=== PATIENT | female | born 1980 | race Caucasian/White ===

== ENCOUNTER 2016-03-31 05:00 | Inpatient (IN) | payer OTHER ==
[2016-03-31] VITALS (11 sets, daily range): BP systolic 104–124; BP diastolic 56–76; PULSE 70–81; RESP 16–18; Ht 162.6 cm; Wt 104.3 kg
[~2016-03-31] VITALS: Ht 162.6 cm; Wt 104.3 kg
[~2016-03-31 05:00] MED LIST: FERR27TA PO; PREN1TAB49 PO
[2016-03-31] MEDS ORDERED: LACTATED RINGER'S 1,000 ML IV SCH (05:49)
--- NOTE | 2016-03-31 05:58 | TRIAGE ---
OB Triage Datetime Report Generated by CPN: 03/31/2016 05:57 Datetime: 03/31/2016 05:41 Assessment Type: Admission Assessment Maternal Assessment Level of Consciousness: Fully Conscious DTR's/Clonus: DTRs 2+; No Clonus Blurred Vision: No Respiratory Effort: Unlabored Nausea/Vomiting: Denies RUQ Epigastric Pain: Denies Lower Extremities Edema: Bilateral Lower Extremities Degree: 2+ Upper Extremities Edema: None Degree: None Facial Edema: None Fall Risk Assessment History of Falling: (0) No Secondary Diagnosis: (0) No Ambulatory Aid: (0) Bedrest/Nurse Assist IV Therapy: (0) No Gait: (0) Normal/Bedrest/Immobile Mental Status: (0) Oriented to Own Ability Fall Score: 0 Fall Risk Score Definition: No Risk: No action required Pain Assessment Pain Scale: 10 Pain Presence: Intermittent Pain Type: Contraction Pain Location: Abdomen Pain Goal: 0 Datetime: 03/31/2016 05:36 Time of Arrival: 03/31/2016 05:36 EGA: 38.1 Arrived By: Ambulatory Arrived From: Emergency Dept Movement: Present Rupture of Membranes: Denies Vaginal Bleeding: None Vaginal Discharge: Denies Recent Sexual Intercouse: Denies Datetime: 03/31/2016 05:31 EGA: 38.1 Vaginal Exam Dilatation (cms): 9.0 Datetime: 03/31/2016 05:24 Vaginal Exam Dilatation (cms): 9.0 Effacement (%): 90 Station: -2 Exam By: Deyvi Nieto RN Membrane Status: Bulging Vaginal Bleeding: None Cervix, Consistency: Soft Cervix, Position: Anterior Presentation 'A': Cephalic Datetime: 03/31/2016 05:20 Time of Arrival: 03/31/2016 05:05 Arrived By: Wheelchair Arrived From: Home Chief Complaint: UC's Movement: Present Contractions: Regular Time Contractions Began: 03/31/2016 02:00 Contractions: Every 3 minutes Rupture of Membranes: Denies Vaginal Bleeding: None Vaginal Discharge: Denies Recent Sexual Intercouse: Denies Abdominal Trauma: Not Applicable Patient Complaints: Contractions Time Provider Notified: 03/31/2016 05:25 Provider Notified: Dr. Sorenson Initial Plan: [facility] VE
[2016-03-31] MEDS ORDERED: LACTATED RINGER'S 1,000 ML IV PRN (06:00)
[2016-03-31] MEDS ORDERED: CARBOPROST 250 MCG INJ IM PRN (06:00)
[2016-03-31] MEDS ORDERED: BUTORPHANOL 2 MG INJ IV PRN (06:00)
[2016-03-31] MEDS ORDERED: OXYTOCIN 30 UNITS/LR 500 ML IV PRN (06:00)
[2016-03-31] MEDS ORDERED: OXYTOCIN 30 UNITS/LR 500 ML IV SCH (06:00)
[2016-03-31] MEDS ORDERED: MISOPROSTOL 200 MCG TAB PR PRN (06:00)
[2016-03-31] MEDS ORDERED: IBUPROFEN 600 MG TAB PO PRN (06:00)
[2016-03-31] MEDS ORDERED: LIDOCAINE 1% (MPF) 30 ML INJ INJ PRN (06:00)
[2016-03-31] MEDS ORDERED: METHYLERGONOVINE 0.2 MG INJ IM PRN (06:00)
[2016-03-31 06:29] LABS: BASOPHILS % 0.2 % (0.0-2.0); EOSINOPHILS # 0.1 10^3/ul (0.0-0.5); EOSINOPHILS % 0.4 % (0.0-7.0); HEMATOCRIT 36.3 % (37.0-47.0); HEMOGLOBIN 11.8 g/dl (12.0-16.0); LYMPHOCYTES % 14.9 % (15.0-51.0); MEAN CORPUSCULAR HEMOGLOBIN 25.7 pg (29.0-33.0); MEAN CORPUSCULAR HGB CONC 32.5 g/dl (32.0-37.0); MEAN CORPUSCULAR VOLUME 79.2 fl (82.0-101.0); MEAN PLATELET VOLUME 11.7 fl (7.4-10.4); MONOCYTE # 0.6 10^3/ul (0.3-0.9); MONOCYTES % 4.2 % (0.0-11.0); NEUTROPHIL # 10.8 10^3/ul (1.6-7.5); NEUTROPHILS % 80.3 % (39.0-77.0); PLATELET COUNT 206 10^3/UL (140-440); RED BLOOD COUNT 4.58 10^6/ul (4.20-5.40); RED CELL DISTRIBUTION WIDTH 19.1 % (11.5-14.5); UNCORRECTED WBC 13.4 10^3/ul (4.8-10.8); WHITE BLOOD COUNT 13.4 10^3/ul (4.8-10.8)
[2016-03-31 06:45] LABS: CONDITION 1; LH ANALYZER COMMENTS 1; SUSPECT 1
[2016-03-31 06:47] LABS: INR 0.94; PROTIME 12.6 Sec (12.2-14.2)
[2016-03-31 06:48] LABS: PARTIAL THROMBOPLASTIN TIME 25.8 Sec (25.0-35.0)
[2016-03-31] MEDS: OXYTOCIN 30 UNITS/LR 500 ML IV SCH ×4 (08:54→14:31)
--- NOTE | 2016-03-31 09:02 | HP ---
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 Rubella: immune RPR/VDRL: Negative GBS Status: Negative HBsAG: Negative OB Admission Exam Vital Signs Vital Signs Vital Signs Date Time Temp Pulse Resp B/P Pulse Ox O2 Delivery O2 Flow Rate FiO2 03/31/16 05:44 98.2 81 18 121/76 Room Air Physical Exam HEENT: WNL Heart: Rhythm Normal Lungs: Clear, Equal Abdomen: WNL Extremities: Normal Reflexes: Normal Cervical Dilatation: 9cm Effacement: 100% Station: -1 Membranes: Intact Amniotic Fluid: Clear Heart Rate: 130's Accelerations: Accelerations Present Decelerations: No Decelerations Varibility: Moderate Contractions on Admission: < 5 Minutes Apart Intensity: Moderate Last 72 hours Lab Results CBC & BMP 03/31/16 05:40 PERNELL CARTER MD Mar 31, 2016 08:47
--- NOTE | 2016-03-31 09:28 | LDN ---
Date/Time of Note Date/Time of Note DATE: 03/31/16 TIME: 09:08 Delivery Summary OF A BABY BOY FROM [place] POSITION ,SHOULDERS DELIVERED WITH OUT DIFFICULTY REST OF THE BODY FOLLOWED ,NASO KAYLEEN PHALANGEAL SUCTION PERFORMED CORD CLAMPED AFTER STOPPED PULSATION, BABY HANDED TO TEAM. PLACENTA ,SPONTANEOUS EXPULSION INSPECTED COMPLETE, POST DELIVERY VAGINAL INSPECTION INTACT PERINEUM ,BLOOD LOSS 200ML Placenta Delivered: Spontaneously Meconium: none Perineum intact?: Yes Anesthesia type: None Sponge & Needle done & correct: Yes All needle counts correct: Yes Any foreign bodies felt in the: No Problems: Infant Delivery Information Apgars 1 Minute: 9 5 Minute: 9 Suctioning Nose & mouth suctioned at dani: Yes Delee suction performed: No Umbilical Cord Umbilical cord with: 3 Vessels Cord presentations: no nuchal cord Cord Blood was obtained: Yes Mother & Baby Disposition Disposition Mom & Baby to Maternity; Good: Yes Mom transferred to: Other (MATERNITY) Baby to NICU: No PERNELL CARTER MD Mar 31, 2016 09:19
--- NOTE | 2016-03-31 10:30 | DELSUM ---
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 Babies in Womb: 1 Attempted: No Labor Anesthesia: IV Sedation LABOR INFORMATION Reason for Induction: Not Applicable Onset of Labor: 03/31/2016 02:00 Complete Dilatation: 03/31/2016 08:31 Oxytocin: N/A Group B Beta Strep: Negative Antibiotics # of Doses: 0 Antibiotics Time of Last Dose: N/A Steroids Given: None Reason Steroids Not Administered: Indication MEMBRANES Membranes Rupture Method: Artificial Rupture of Membranes: 03/31/2016 08:23 Length of Rupture (hr): 0.50 Amniotic Fluid Color: Clear Amniotic Fluid Amount: Large Amniotic Fluid Odor: None STAGES OF LABOR Stage 1 hr: 6 Stage 1 min: 31 Stage 2 hr: 0 Stage 2 min: 22 Stage 3 hr: 0 Stage 3 min: 4 Total Time in Labor hr: 6 Total Time in Labor min: 57 VAGINAL DELIVERY Episiotomy: None BABY A INFORMATION Delivery Date/Time: 03/31/2016 08:53 Method of Delivery: Vaginal Method of Delivery: Vaginal Born in Route : No : N/A Forceps: N/A Vacuum Extraction: N/A Shoulder Dystocia : No SHOULDER DYSTOCIA BABY A Delivery Date/Time: 03/31/2016 08:53 PRESENTATION/POSITION BABY A Presentation: Cephalic Cephalic Presentation: Vertex Vertex Position: Left Occipital Anterior Breech Presentation: N/A PLACENTA INFORMATION BABY A Placenta Delivery Time : 03/31/2016 08:57 Placenta Method of Delivery: Spontaneous Placenta Method of Delivery: Spontaneous Placenta Status: Delivered SCORES BABY A Heart Rate 1 min: >100 bpm Resp Effort 1 min: Good Cry Reflex Irritability 1 min: Cough/Sneeze/Pulls Away Muscle Tone 1 min: Active Motion Color 1 min: Body [place], Extremit Blue Resuscitation Effort 1 min: Tactile Stimulation SCORE 1 MIN: 9 Heart Rate 5 min: >100 bpm Resp Effort 5 min: Good Cry Reflex Irritability 5 min: Cough/Sneeze/Pulls Away Muscle Tone 5 min: Active Motion Color 5 min: Body [place], Extremit Blue SCORE 5 MIN: 9 INFANT INFORMATION BABY A Gestational Age at Delivery: 38.1 Gestational Status: Early Term- 37- 38.6 Weeks Infant Outcome : Liveborn Infant Condition : Stable Infant Sex: Male Infant Sex: Male IDENTIFICATION/MEDS BABY A ID Band Number: [id number] ID Band Location: Right Leg; Left Arm Sensor Applied: Yes Sensor Number: [id number] Sensor Location : Cord Clamp WEIGHT/LENGTH BABY A Infant Birthweight (gm): 3805 Infant Weight (lb): 8 Infant Weight (oz): 6 Infant Length (in): 20.50 Infant Length (cm): 52.07 CORD INFORMATION BABY A No. Cord Vessels: 3 Nuchal Cord : N/A Cord Blood Taken: Yes Suction: Mouth; Nose ASSESSMENT BABY A Complications: Decreased Variability Physical Findings at Delivery: Cap[place] Infant Respirations: Appears Normal Animal Care Assistant/ALS Called : No Care By: MINI MCELROY Transferred To: Remains with Mother
[2016-03-31] MEDS ORDERED: BENZOCAINE 20% 56 ML SPRAY TOP PRN (11:00)
[2016-03-31] MEDS ORDERED: DIBUCAINE 1% 30 GM OINT PR PRN (11:00)
[2016-03-31] MEDS ORDERED: ACETAMINOPHEN 325 MG TAB PO PRN (11:00)
[2016-03-31] MEDS ORDERED: LANOLIN 7 GM TUBE TOP PRN (11:00)
[2016-03-31] MEDS ORDERED: WITCH HAZEL/GLYCERIN PAD PR PRN (11:00)
[2016-03-31] MEDS ORDERED: OXYCODONE/ASPIRIN (4.88/325) TAB PO PRN ×2 (11:00)
[2016-03-31] MEDS ORDERED: ONDANSETRON 4 MG INJ IV PRN (11:00)
[2016-03-31] MEDS ORDERED: ACETAMINOPHEN/CODEINE #3 TAB PO PRN (11:00)
[2016-03-31] MEDS: IBUPROFEN 600 MG TAB PO SCH ×2 (12:49→17:58)
[2016-03-31] MEDS: ACETAMINOPHEN/CODEINE #3 TAB PO PRN (18:44)
[2016-03-31] MEDS: SENNA/DOCUSATE NA (8.6MG/50MG) TAB PO SCH (21:18)
[2016-04-01 00:35] VITALS: BP 99/59; PULSE 68; RESP 18
[2016-04-01] MEDS: IBUPROFEN 600 MG TAB PO SCH ×4 (00:44→17:27)
[2016-04-01 04:15] VITALS: BP 103/58; PULSE 70; RESP 19
[2016-04-01 08:00] VITALS: BP 104/57; PULSE 65; RESP 18
[2016-04-01] MEDS: SENNA/DOCUSATE NA (8.6MG/50MG) TAB PO SCH ×2 (08:42→20:47)
[2016-04-01 09:21] LABS: BASOPHILS % 0.3 % (0.0-2.0); EOSINOPHILS # 0.1 10^3/ul (0.0-0.5); EOSINOPHILS % 0.9 % (0.0-7.0); HEMATOCRIT 33.5 % (37.0-47.0); LYMPHOCYTES # 3.1 10^3/ul (0.8-2.9); LYMPHOCYTES % 32.4 % (15.0-51.0); MEAN CORPUSCULAR HEMOGLOBIN 26.1 pg (29.0-33.0); MEAN CORPUSCULAR HGB CONC 32.9 g/dl (32.0-37.0); MEAN CORPUSCULAR VOLUME 79.4 fl (82.0-101.0); MEAN PLATELET VOLUME 11.1 fl (7.4-10.4); MONOCYTE # 0.5 10^3/ul (0.3-0.9); MONOCYTES % 5.2 % (0.0-11.0); NEUTROPHIL # 5.9 10^3/ul (1.6-7.5); NEUTROPHILS % 61.2 % (39.0-77.0); PLATELET COUNT 199 10^3/UL (140-440); RED BLOOD COUNT 4.21 10^6/ul (4.20-5.40); UNCORRECTED WBC 9.6 10^3/ul (4.8-10.8); WHITE BLOOD COUNT 9.6 10^3/ul (4.8-10.8)
[2016-04-01 09:34] LABS: CONDITION 1; LH ANALYZER COMMENTS 1; SUSPECT 1
--- NOTE | 2016-04-01 10:39 | PN ---
Date/Time of Note Date/Time of Note DATE: 04/01/16 TIME: 10:38 OB Subjective Subjective Subjective day 1 Afebrile vital sign stable, abdomen soft uterus firm lochia normal extremity normal PERNELL CARTER MD Apr 01, 2016 10:39
[2016-04-01] MEDS ORDERED: INFLUENZA VIRUS VACCINE 0.5 ML SYG IM* ONE (15:30)
[2016-04-01 15:40] VITALS: BP 118/67; PULSE 67; RESP 19
[2016-04-01 20:00] VITALS: BP 117/57; PULSE 71; RESP 18
[2016-04-01] MEDS: ACETAMINOPHEN/CODEINE #3 TAB PO PRN (20:47)
[2016-04-02] MEDS: IBUPROFEN 600 MG TAB PO SCH ×3 (00:16→12:58)
[2016-04-02 04:00] VITALS: BP 102/60; PULSE 66; RESP 18
[2016-04-02 08:00] VITALS: BP 126/80; PULSE 76; RESP 18
[2016-04-02] MEDS ORDERED: MEASLES,MUMPS,RUBELLA VACCINE INJ SC* ONE (09:00)
[2016-04-02] MEDS: SENNA/DOCUSATE NA (8.6MG/50MG) TAB PO SCH (09:33)
--- NOTE | 2016-04-02 18:15 | DS ---
Date/Time of Note Date/Time of Note DATE: 04/02/16 TIME: 18:14 Obstetrical Discharge Record Final Diagnosis Final Diagnosis: Term delivered Vaginal Delivery Obstetrical Delivery: Spontaneous Condition on Discharge Physical Assessment Last Vitals: day 2 Vital sign a stable afebrile abdomen soft uterus firm lochia normal extremity normal patient discharged home with follow-up instruction to be seen at the clinic in 2 weeks. Current Medications Medications (Trade) Dose Ordered Sig/Pasquale Route PRN Reason Start Time Stop Time Status Last Admin Dose Admin Lactated Ringer's (Lr) 1,000 ml @ 125 mls/hr Q8H IV 03/31/16 05:49 03/31/16 10:54 DC 03/31/16 05:58 Butorphanol Tartrate (Stadol) 2 mg Q2H PRN IV PAIN 03/31/16 06:00 03/31/16 10:54 DC 03/31/16 06:30 Lidocaine 30 ml 30 ml ONCE PRN INJ EPISIOTOMY/TEARING 03/31/16 06:00 03/31/16 10:54 DC Oxytocin/Lactated Ringer's 500 ml @ 500 mls/hr ONCE -MAY REPEAT X1 IV 03/31/16 06:00 03/31/16 10:54 DC Oxytocin/Lactated Ringer's 500 ml @ 125 mls/hr ONCE IV 03/31/16 06:00 03/31/16 10:54 DC 03/31/16 10:09 Ibuprofen 600 mg 600 mg ONCE PRN PO Mild Pain (Pain Score 1-3) 03/31/16 06:00 03/31/16 10:54 DC Lactated Ringer's 1,000 ml @ 2,000 mls/hr Q30M PRN IV PRE-EPIDURAL BOLUS 03/31/16 06:00 03/31/16 10:54 DC Oxytocin/Lactated Ringer's 500 ml @ 0 mls/hr ONCE PRN IV For Hemorrhage Management 03/31/16 06:00 03/31/16 10:54 DC Methylergonovine Maleate (Methergine) 0.2 mg ONCE PRN IM VAGINAL BLEEDING 03/31/16 06:00 03/31/16 10:54 DC Carboprost Tromethamine (Hemabate) 250 mcg ONCE PRN IM VAGINAL BLEEDING 03/31/16 06:00 03/31/16 10:54 DC Misoprostol 1000 mcg 1,000 mcg ONCE PRN OR VAGINAL BLEEDING 03/31/16 06:00 03/31/16 10:54 DC Oxytocin/Lactated Ringer's 500 ml @ 125 mls/hr Q4H IV 03/31/16 10:51 03/31/16 18:50 DC 03/31/16 14:31 Ibuprofen (Motrin) 600 mg Q6 PO 03/31/16 12:00 04/02/16 17:33 DC 04/02/16 12:58 Acetaminophen (Tylenol Tab) 650 mg Q4H PRN PO PAIN LEVEL 1-5 03/31/16 11:00 04/02/16 17:33 DC 04/02/16 09:33 Acetaminophen/ Codeine Phosphate (Tylenol No.3) 1 tab Q4H PRN PO PAIN LEVEL 1-5 03/31/16 11:00 04/02/16 17:33 DC Acetaminophen/ Codeine Phosphate (Tylenol No.3) 2 tab Q4H PRN PO PAIN LEVEL 6-10 03/31/16 11:00 04/02/16 17:33 DC 04/01/16 20:47 Oxycodone/Aspirin (Percodan) 1 tab Q3H PRN PO PAIN LEVEL 1-5 03/31/16 11:00 04/02/16 17:33 DC Oxycodone/Aspirin (Percodan) 2 tab Q3H PRN PO PAIN LEVEL 6-10 03/31/16 11:00 04/02/16 17:33 DC Ondansetron HCl (Zofran Inj) 4 mg Q6H PRN IV NAUSEA AND/OR VOMITING 03/31/16 11:00 04/02/16 17:33 DC Senna/Docusate Sodium (Senokot-S) 1 tab BID PO 03/31/16 21:00 04/02/16 17:33 DC 04/02/16 09:33 Witch Jacquelyn/ Glycerin (Tucks Pads) 1 pad BEDSIDE MEDICATION PRN OR HEMORRHOID/EPISIOTMY PAIN 03/31/16 11:00 04/02/16 17:33 DC Benzocaine (Dermoplast [place]) 1 spray BEDSIDE MEDICATION PRN TOP HEMORRHOID/EPISIOTMY PAIN 03/31/16 11:00 04/02/16 17:33 DC Dibucaine (Nupercainal) 1 applic BEDSIDE MEDICATION PRN OR HEMORRHOID/EPISIOTMY PAIN 03/31/16 11:00 04/02/16 17:33 DC Lanolin (Civ-W-Qyanqm) 1 applic BEDSIDE MEDICATION PRN TOP BEDSIDE FOR TINY TO NIPPLES 03/31/16 11:00 04/02/16 17:33 DC 03/31/16 12:49 Measles/Mumps/ Rubella Vaccine Live (Mmr Ii Vaccine) 0.5 ml ONCE ONCE SC* 04/02/16 09:00 04/02/16 09:01 DC Influenza Virus Vaccine (Fluzone) 0.5 ml ONCE ONCE IM* 04/01/16 15:30 04/01/16 15:31 DC 04/01/16 11:49 Voiding: Yes Bowel Movement: Yes Fundus: Firm Calf Tenderness: No Patient Condition: Good PERNELL CARTER MD Apr 02, 2016 18:15
== END 2016-04-02 17:32 | disposition home or self-care (01) | DRG 775 ==
LOC: L-D 05:00 → OBT 05:00 → L-D 05:35 → PP1 10:48
PROVIDERS: ADMIT Obstetrics & Gynecology; ATTEND Obstetrics & Gynecology
PROC: 10E0XZZ Delivery of Products of Conception, External Approach (ICD-10-PCS; principal; 2016-03-31)
PROC: 3E0234Z Introduction of Serum, Toxoid and Vaccine into Muscle, Percutaneous Approach (ICD-10-PCS; 2016-04-01)
DX: O62.3 Precipitate labor (principal); Z3A.38 38 weeks gestation of pregnancy; Z37.0 Single live birth; Z23 Encounter for immunization
CPT/HCPCS: 85025; 85610; 85730; 86592; 86900; 86901; 87340; 90686; G0463; J2590; J7120